=== PATIENT | female | born 1940 | race Caucasian/White ===

== ENCOUNTER → 2018-01-04 | Outpatient (CLI) | payer OTHER ==
[~2018-01-04] VITALS: Ht 160 cm; Wt 71.7 kg
[~2018-01-04] MED LIST: AMITRIPTYLINE H75 M1 PO; CYMBALTA30 MG PO; LISINOPRIL5 MG PO; MAGOX 400400 MG PO; VERAPAMIL E.R240 M1 PO
--- NOTE | ~2018-01-04 | P ---
[facility] [place] [address] PROCEDURE REPORT Name: BRIAN CASAS Room #: REG Pina Huff#: [id number] Admission: 01/04/18 Attend Phys: Chai Thakkar Discharge: Date of : 42 Report #: [id number] THIS REPORT FOR: //name// CC: Chai Mckeon DATE OF SERVICE: 01/04/2018 PROCEDURE PERFORMED: Colonoscopy with biopsies. HISTORY OF PRESENT ILLNESS: The patient is a 77-year-old female with a history of polyps. Last colonoscopy was 5 years ago in which hyperplastic polyps were removed. She also has a family history of colon cancer. DESCRIPTION OF PROCEDURE: The risks and benefits of the procedure were explained to the patient. Those risks including but not limited to bleeding, perforation, the risk of sedation. She understood these risks and gave informed consent. Sedation was given using propofol per Anesthesia. Next, a digital rectal exam was initially performed, which was normal. Next, using a standard Fujinon colonoscope, the scope was placed in the patient's anus and advanced under direct vision to the cecum. The overall prep was good. The cecum and ileocecal valve were normal in appearance. Ascending, transverse and descending colon were normal. A single 3 mm sessile polyp was noted in the sigmoid colon. This was removed with cold forceps, otherwise normal. Rectal mucosa was normal. On retroflexion, no abnormalities were noted other than small internal hemorrhoids. The scope was then withdrawn and the procedure terminated. The patient tolerated the procedure well. IMPRESSION: 1. Small colonic polyp. 2. Small internal hemorrhoids. 3. Otherwise, normal colonoscopy. RECOMMENDATIONS: 1. Await biopsy results. 2. Repeat colonoscopy in 5 years. Thank you for allowing me to participate in her care. <ELECTRONICALLY SIGNED> By: Chai Gutierrez MD 01/14/18 [id number] Chai Gutierrez MD /nt
--- NOTE | ~2018-01-04 | S ---
[facility] [place] [address] SURGICAL PATH RPT PROCEDURE Name: VENICE CASAS Room #: REG ABDIRIZAK Huff#: [id number] Admission: 01/04/18 Date of : 42 Discharge: Report #: [id number] Path Case #: [id number] PATHOLOGY REPORT COLLECTION DATE: 01/04/2018 RECEIVED DATE: 01/04/2018 SUBMITTING PHYS: Dr. Chai Gutierrez OTHER PHYS: Dr. Nataliia Mckeon SPECIMEN(S) RECEIVED: A.Sigmoid polyp * * * * * * * * * * * * FINAL DIAGNOSIS: Colonic mucosa "sigmoid colon biopsy": - Tubular adenoma. - There is no evidence of high-grade dysplasia or malignancy (SHA:pit; 01/07/2018) PATHOLOGIST: Shiv Buchanan M.D. REPORT ELECTRONICALLY SIGNED BY: Shiv Buchanan M.D. DATE/TIME: 01/07/2018 08:59 * * * * * * * * * * * * GROSS PATHOLOGY: Received in formalin labeled "Venice Casas, BX of polyp at sigmoid colon," is a segment of bedolla soft tissue measuring 0.3 cm in maximum dimension. The specimen is submitted entirely in cassette A1. (TSD; 01/04/2018) CLINICAL HISTORY: Pre-OP DX: Hx polyps Post-OP DX: Sigmoid polyp INITIAL CPT CODE(S): A; 01731 Professional services performed by [facility] at [facility] [address] [place], [place] [address] Technical services performed by [facility] at [address] [place] [address], [facility] [address], [place] [address]. [facility] [address] [place] [address] SURGICAL PATH RPT PROCEDURE Name: VENICE CASAS Room #: REG [facility] Margarita.#: [id number] Admission: 01/04/18 Date of : 42 Discharge: Report #: [id number] Path Case #: [id number] [facility] [address] [address] PHONE: [phone] DIRECTOR: Ashvin Salinas M.D. * * * END OF REPORT * * *
== END ==
LOC: GI 06:54
DX: Z09 Encounter for follow-up examination after completed treatment for conditions other than malignant neoplasm (principal); Z86.010 Personal history of colon polyps; D12.5 Benign neoplasm of sigmoid colon; Z80.0 Family history of malignant neoplasm of digestive organs; K64.8 Other hemorrhoids; F32.9 Major depressive disorder, single episode, unspecified; F41.9 Anxiety disorder, unspecified; Z87.891 Personal history of nicotine dependence; I10 Essential (primary) hypertension; Z85.42 Personal history of malignant neoplasm of other parts of uterus; Z90.710 Acquired absence of both cervix and uterus
CPT/HCPCS: 62110; 62900